=== PATIENT | male | born 1985 | race Asian ===

== ENCOUNTER 2021-01-03 15:47 | Outpatient (CLI) | payer BC ==
[2021-01-04 01:01] LABS: SARS-CoV-2 PCR by NAA Not Detected (NotDetected)
== END 2021-01-03 15:48 | disposition home or self-care (01) ==
LOC: LABBT 15:47
PROVIDERS: ATTEND Student in an Organized Health Care Education/Training Program
DX: Z01.812 Encounter for preprocedural laboratory examination (principal); Z20.822 Contact with and (suspected) exposure to COVID-19
CPT/HCPCS: 87635; U0003; U0005

== ENCOUNTER 2021-01-07 08:41 | Day surgery (SDC) | payer BC ==
[2021-01-07] MEDS ORDERED: Acetaminophen 500 MG TAB ONE (08:55)
[2021-01-07] MEDS ORDERED: Midazolam HCl 2 mg/2 ml Vial ONE (08:56)
[2021-01-07] MEDS ORDERED: Clindamycin/D5W 900 mg/50 ml Premix Bag ONE (10:11)
[2021-01-07] MEDS ORDERED: Fentanyl 100 MCG/2 ML VIAL ONE (10:21)
[2021-01-07] MEDS ORDERED: Ondansetron PF 4 MG/2 ML Vial ONE (10:25)
[2021-01-07] MEDS ORDERED: Rocuronium Bromide 10 MG/ML (10ML VIAL) ONE (10:25)
[2021-01-07] MEDS ORDERED: Dexamethasone 20 MG/5 ML VIAL ONE (10:25)
[2021-01-07] MEDS ORDERED: Lidocaine 1% PF 5 ML VIAL ONE (10:25)
[2021-01-07] MEDS ORDERED: PROPOFOL 200 MG/20 ML VIAL ONE (10:25)
[2021-01-07] MEDS ORDERED: EPINEPHrine 1 MG/ML AMP ONE (10:42)
[2021-01-07] MEDS ORDERED: SUGAMMADEX SODIUM 200 MG/2 ML VIAL ONE (11:01)
[2021-01-07] MEDS ORDERED: Hydrocodone-Acetamin 15 ML UDCUP ONE (12:41)
== END 2021-01-07 12:50 | disposition home or self-care (01) ==
LOC: SDC 08:41
PROVIDERS: ATTEND Student in an Organized Health Care Education/Training Program
PROC: 0CBM8ZZ Excision of Pharynx, Via Natural or Artificial Opening Endoscopic (ICD-10-PCS; principal; 2021-01-07)
DX: J38.7 Other diseases of larynx (principal); F45.8 Other somatoform disorders; J34.2 Deviated nasal septum; Z88.0 Allergy status to penicillin
CPT/HCPCS: 88304; J0171; J1100; J2250; J2405; J2704; J3010; J3490